=== PATIENT | male | born 1965 | race Caucasian/White ===

== ENCOUNTER 2019-11-23 08:48 | Inpatient (IN) | payer BC ==
[~2019-11-23 08:48] MED LIST: Acetaminophen 325 MG Tab PO SCH; Bisacodyl 5 MG Tab PO PRN; Cyclobenzaprine 10 MG Tab PO PRN; Famotidine 20 MG Tab PO SCH; Ketorolac 15 MG/ML SDV IVPUSH PRN; Lactated Ringers 1,000 ML IV SCH; Lidocaine 1%/Sod Bicarbonate in NS 8.4% 1 ML Syringe IDERM PRN; Magnesium Hydroxide 400 MG/5 ML Susp 30 ML Cup PO PRN; Morphine 2 MG/ML SYRINGE IVPUSH PRN; Naloxone 0.4 MG/ML SDV IVPUSH PRN; Ondansetron 4 MG/2 ML SDV IVPUSH PRN; Pregabalin 25 MG Cap PO SCH; Sennosides 8.6 MG Tab PO PRN; Sodium Chloride 0.9% 10 ML Syringe FLUSH PRN; ceFAZolin 2 GM in Premix Bag 1 BAG IV SCH; oxyCODONE ER 10 MG TAB.ER PO SCH
[2019-11-23] MEDS ORDERED: Vancomycin 1 GM SDV ONE ×2 (09:13→12:31)
[2019-11-23] MEDS ORDERED: Iodine/Sodium Iodide 2% Tincture 30 ML Bottle ONE ×2 (09:13→12:31)
[2019-11-23] MEDS ORDERED: Bupivacaine 0.25% 10 ML SDV ONE (09:13)
[2019-11-23] MEDS ORDERED: ceFAZolin 1 GM Vial ONE ×4 (09:13→12:31)
--- NOTE | 2019-11-23 09:15 | PCM.PREANE ---
Preanesthetic Assessment - Procedure Proposed Procedure: Right total shoulder arthroplasty - Anesthesia/Transfusion/Family Hx Anesthesia History: Prior Anesthesia Without Reaction Family History of Anesthesia Reaction: No Transfusion History: No Prior Transfusion(s) - Review of Systems General: No Symptoms Pulmonary: No Symptoms Cardiovascular: Dyspnea on Exertion Gastrointestinal: No Symptoms Neurological: No Symptoms Other: Reports: Easy Bruising, Neck Pain ("stifness") - Physical Assessment NPO Status Date: 11/22/19 NPO Status Time: 00:00 Height: 1.78 m Weight: 124.5 kg ASA Class: 3 Mental Status: Alert & Oriented x3 Airway Class: Mallampati = 1 Dentition: Reports: Normal Dentition Thyro-Mental Finger Breadths: 3 Mouth Opening Finger Breadths: 3 ROM/Head Extension: Full Lungs: Clear to Auscultation, Normal Respiratory Effort Cardiovascular: Regular Rate, Regular Rhythm - Lab Values: Laboratory Last Values COVID-19 PCR Not detected (NOT DETECT) 11/20/19 11:30 MRSA (PCR) Negative 11/08/19 15:54 - Imaging/EKG Impressions: EKG SR Rate 71 - Allergies Allergies/Adverse Reactions: Allergies Allergy/AdvReac Type Severity Reaction Status Date / Time No Known Allergies Allergy Verified 11/22/19 11:50 - Blood Blood Available: No Product(s) Available: None - Anesthesia Plan Pre-Op Medication Ordered: None - Acknowledgements Anesthesia Type Planned: General Anesthesia, Regional Block (interscanese block for post-op pain control) Pt an Appropriate Candidate for the Planned Anesthesia: Yes Alternatives and Risks of Anesthesia Discussed w Pt/Guardian: Yes Pt/Guardian Understands and Agrees with Anesthesia Plan: Yes PreAnesthesia Questionnaire HEENT History: Reports: Impaired Vision, Other (See Below) Other HEENT History: wears glasses Cardiovascular History: Reports: Hypertension Respiratory History: Reports: None Gastrointestinal History: Reports: Diverticulosis, GERD, Hemorrhoids, Hiatal Hernia Genitourinary History: Reports: None 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 Musculoskeletal History: Reports: Back Pain, Chronic, Neck Pain, Chronic, Other (See Below) Other Musculoskeletal History: shoulder pain Neurological History: Reports: Other (See Below) Other Neuro History: cervical ddd Psychiatric History: Reports: Anxiety Endocrine/Metabolic History: Reports: Diabetes, Type II, Obesity/BMI 30+ Hematologic History: Reports: None Immunologic History: Reports: None Oncologic (Cancer) History: Reports: None Dermatologic History: Reports: None - Past Surgical History Head Surgeries/Procedures: Reports: None HEENT Surgical History: Reports: None Cardiovascular Surgical History: Reports: None Respiratory Surgical History: Reports: None GI Surgical History: Reports: Colonoscopy Female Surgical History: Reports: None Male Surgical History: Reports: None Endocrine Surgical History: Reports: None Musculoskeletal Surgical History: Reports: None Oncologic Surgical History: Reports: None Dermatological Surgical History: Reports: None - SUBSTANCE USE Smoking Status *Q: Current Every Day Smoker (chews tobacco) Tobacco Use Within Last Twelve Months: Smokeless Tobacco Second Hand Smoke Exposure: No Days Per Week of Alcohol Use: 3 Number of Drinks Per Day: 3 Total Drinks Per Week: 9 Recreational Drug Use History: No - HOME MEDS Home Medications: Home Meds Omeprazole [Prilosec] 20 mg PO DAILY 01/21/14 [History] Aspirin [Adult Low Dose Aspirin EC] 81 mg PO DAILY 05/31/15 [History] Cholecalciferol (Vitamin D3) [Vitamin D3] 5,000 unit PO DAILY 11/22/19 [History] Losartan Potassium 100 mg PO DAILY 11/22/19 [History] Omeprazole Magnesium [Prilosec Otc] 20 mg PO DAILY 11/22/19 [History] SitaGLIPtin [Januvia] 100 mg PO DAILY 11/22/19 [History] Venlafaxine HCl [Venlafaxine ER] 150 mg PO DAILY 11/22/19 [History] hydroCHLOROthiazide [Hydrochlorothiazide] 12.5 mg PO DAILY 11/22/19 [History] - CURRENT (IN HOUSE) MEDS Current Meds: Current Medications Acetaminophen (Tylenol) 975 mg PO ONETIME DUONG Stop: 11/23/19 12:00 Last Admin: 11/23/19 09:04 Dose: 975 mg Documented by: Aspirin (Ecotrin) 325 mg PO DAILY DUONG Bisacodyl (Dulcolax) 5 mg PO DAILY PRN PRN Reason: Constipation Cyclobenzaprine HCl (Flexeril) 10 mg PO TID PRN PRN Reason: Spasms Docusate Sodium (Colace) 100 mg PO BID DUONG Famotidine (Pepcid) 20 mg PO Q12H DUONG Lactated Ringer's (Ringers, Lactated) 1,000 mls @ 125 mls/hr IV ASDIRECTED DUONG Stop: 11/23/19 23:00 Cefazolin Sodium/Dextrose 2 gm (/ Premix) 50 mls @ 100 mls/hr IV Q8H [facility] Stop: 11/24/19 01:29 Ketorolac Tromethamine (Toradol) 15 mg IVPUSH Q6H PRN PRN Reason: Pain Lidocaine/Sodium Bicarbonate (Buffered Lidocaine 1% In Ns 8.4%) 0.25 ml IDERM ONETIME PRN PRN Reason: Prior to IV Start Stop: 11/23/19 18:00 Magnesium Hydroxide (Milk Of Magnesia) 30 ml PO BID PRN PRN Reason: Constipation Morphine Sulfate (Morphine) 2 mg IVPUSH Q2H PRN PRN Reason: Breakthrough Pain Naloxone HCl (Narcan) 0.1 mg IVPUSH Q5M PRN PRN Reason: Oversedation Ondansetron HCl (Zofran) 4 mg IVPUSH Q6H PRN PRN Reason: Nausea/Vomiting Oxycodone HCl (Oxycontin) 10 mg PO ONETIME [facility] Stop: 11/23/19 12:00 Last Admin: 11/23/19 09:04 Dose: 10 mg Documented by: Oxycodone/Acetaminophen (Percocet 325-5 Mg) 1 - 2 tab PO Q4H PRN PRN Reason: Pain Pregabalin (Lyrica) 50 mg PO ONETIME [facility] Stop: 11/23/19 12:00 Last Admin: 11/23/19 09:04 Dose: 50 mg Documented by: Senna (Senna) 8.6 mg PO BID PRN PRN Reason: Constipation Sodium Chloride (Saline Flush) 10 ml FLUSH ASDIRECTED PRN PRN Reason: Keep Vein Open Stop: 11/23/19 18:00 Discontinued Medications Famotidine (Pepcid) 20 mg PO Q12H [facility] Cefazolin Sodium/Dextrose 2 gm (/ Premix) 50 mls @ 100 mls/hr IV Q8H [facility] Stop: 11/23/19 22:29 Ketorolac Tromethamine (Toradol) 15 mg IVPUSH Q6H PRN PRN Reason: Pain
[2019-11-23] MEDS ORDERED: Ropivacaine 0.5% 5 MG/ML 30 ML SDV ONE (09:21)
[2019-11-23] MEDS ORDERED: EPINEPHrine 1 MG/ML SDV ONE (09:21)
[2019-11-23] MEDS ORDERED: fentaNYL 100 MCG/2 ML SDV ONE ×2 (09:23→10:23)
[2019-11-23] MEDS ORDERED: Lidocaine 1% 2 ML ONE (09:23)
[2019-11-23] MEDS ORDERED: Midazolam 1 MG/ML 2 ML SDV ONE (09:23)
[2019-11-23] MEDS ORDERED: Rocuronium 50 MG/5 ML Vial ONE (10:03)
[2019-11-23] MEDS ORDERED: Ondansetron 4 MG/2 ML SDV ONE ×2 (10:03→11:38)
[2019-11-23] MEDS ORDERED: Propofol 200 MG/20 ML SDV ONE (10:03)
[2019-11-23] MEDS ORDERED: Lactated Ringers 1,000 ML ONE (10:38)
--- NOTE | 2019-11-23 10:44 | PCM.CONS ---
H&P History of Present Illness - General Date of Service: 11/23/19 Admit Problem/Dx: Admission Diagnosis/Problem Admission Diagnosis/Problem Osteoarthritis of shoulder Source of Information: Patient, Old Records, Provider, RN, RN Notes Reviewed History Limitations: Reports: No Limitations - History of Present Illness Initial Comments - Free Text/Narative: Iraj Brooks is a 54 yo male patient of Dr. Redd who is post-operative day 0 of right RTSA. Hospital medicine was consulted for post-operative medical care of the following listed medical conditions. At this time he is resting comfortably in bed. Pain is controlled. He denies any chest pain, shortness of breath, palpitations, nausea, or vomiting. He carries a history of: Anxiety, Type II DM, GERD, HTN, Low back pain, Obesity, ETOH use, Diverticulosis, Chronic neck pain 2/2 cervical degenerative disk disease, Hemorrhoids, Hiatal Hernia. He is a current daily chewing tobacco user. He is a full code. His primary care provider is Dr. Loja. - Related Data Allergies/Adverse Reactions: Allergies Allergy/AdvReac Type Severity Reaction Status Date / Time No Known Allergies Allergy Verified 11/23/19 13:55 Home Medications: Home Meds Aspirin [Adult Low Dose Aspirin EC] 81 mg PO DAILY 05/31/15 [History] Cholecalciferol (Vitamin D3) [Vitamin D3] 5,000 unit PO DAILY 11/22/19 [History] Losartan Potassium 100 mg PO DAILY 11/22/19 [History] Omeprazole Magnesium [Prilosec Otc] 20 mg PO DAILY 11/22/19 [History] SitaGLIPtin [Januvia] 100 mg PO DAILY 11/22/19 [History] Venlafaxine HCl [Venlafaxine ER] 150 mg PO DAILY 11/22/19 [History] hydroCHLOROthiazide [Hydrochlorothiazide] 12.5 mg PO DAILY 11/22/19 [History] Magnesium 11/23/19 [History] Multivitamin 1 tab PO DAILY 11/23/19 [History] Past Medical History HEENT History: Reports: Impaired Vision, Other (See Below) Other HEENT History: wears glasses Cardiovascular History: Reports: Hypertension Respiratory History: Reports: None Gastrointestinal History: Reports: Diverticulosis, GERD, Hemorrhoids, Hiatal Hernia Genitourinary History: Reports: None 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 Musculoskeletal History: Reports: Back Pain, Chronic, Neck Pain, Chronic, Other (See Below) Other Musculoskeletal History: shoulder pain Neurological History: Reports: Other (See Below) Other Neuro History: cervical ddd Psychiatric History: Reports: Anxiety Endocrine/Metabolic History: Reports: Diabetes, Type II, Obesity/BMI 30+ Hematologic History: Reports: None Immunologic History: Reports: None Oncologic (Cancer) History: Reports: None Dermatologic History: Reports: None - Past Surgical History Head Surgeries/Procedures: Reports: None HEENT Surgical History: Reports: None Cardiovascular Surgical History: Reports: None Respiratory Surgical History: Reports: None GI Surgical History: Reports: Colonoscopy Female Surgical History: Reports: None Male Surgical History: Reports: None Endocrine Surgical History: Reports: None Musculoskeletal Surgical History: Reports: None Oncologic Surgical History: Reports: None Dermatological Surgical History: Reports: None Social & Family History - Tobacco Use Smoking Status *Q: Current Every Day Smoker (chews tobacco) Years of Tobacco use: 35 Packs/Tins Daily: 0.5 Second Hand Smoke Exposure: No - Caffeine Use Caffeine Use: Reports: Soda - Alcohol Use Days Per Week of Alcohol Use: 3 Number of Drinks Per Day: 3 Total Drinks Per Week: 9 - Recreational Drug Use Recreational Drug Use: No H&P Review of Systems - Review of Systems: Review Of Systems: See Below General: Reports: No Symptoms. Denies: Fever, Chills HEENT: Reports: No Symptoms. Denies: Headaches, Sore Throat Pulmonary: Reports: Cough. Denies: Shortness of Breath, Wheezing, Pleuritic Chest Pain, Sputum Cardiovascular: Reports: No Symptoms. Denies: Chest Pain, Palpitations, Dyspnea on Exertion Gastrointestinal: Reports: No Symptoms. Denies: Abdominal Pain, Constipation, Diarrhea, Nausea, Vomiting Genitourinary: Reports: No Symptoms. Denies: Pain Musculoskeletal: Reports: Shoulder Pain Skin: Reports: No Symptoms. Denies: Cyanosis Psychiatric: Reports: No Symptoms. Denies: Confusion Neurological: Reports: Numbness, Tingling. Denies: Pre-Existing Deficit, Difficulty Walking, Weakness, Gait Disturbance Hematologic/Lymphatic: Reports: No Symptoms Immunologic: Reports: No Symptoms Exam - Exam Exam: See Below - Vital Signs Vital Signs: Last Vital Signs Temp 98.1 F 11/23/19 08:46 Pulse 83 11/23/19 08:46 Resp 19 11/23/19 09:52 BP 149/89 H 11/23/19 09:52 Pulse Ox 97 11/23/19 09:52 Weight: 274 lb 7.608 oz - Exam Quality Assessment: DVT Prophylaxis. No: Supplemental Oxygen, Urinary Catheter General: Alert, Oriented, Cooperative. No: Mild Distress HEENT: Conjunctiva Clear, EACs Clear, Hearing Intact, Mucosa Moist & [place], Posterior Pharynx Clear, PERRLA Neck: Supple, Trachea Midline Lungs: Clear to Auscultation, Normal Respiratory Effort Cardiovascular: Regular Rate, Regular Rhythm GI/Abdominal Exam: Normal Bowel Sounds, Soft, Non-Tender, No Distention (Male) Exam: Deferred Rectal (Males) Exam: Deferred Extremities: Normal Capillary Refill, Limited Range of Motion, Other (Bandage in place on right shoulder. Bandage is dry and intact. Cooling pack in place. ) Peripheral Pulses: 2+: Radial (L), Radial (R), Dorsalis Pedis (L), Dorsalis Pedis (R) Skin: Warm, Dry, Intact Neurological: Cranial Nerves Intact (Grossly ) Neuro Extensive - Mental Status: Alert, Oriented x3, Normal Mood/Affect - Patient Data Lab Results Last 24 hrs: Laboratory Results - last 24 hr 11/23/19 Range/Units 09:15 POC Glucose 103 (70-105) mg/dL Sepsis Event Note - Focused Exam Vital Signs: Vital Signs Temp Pulse Resp BP Pulse Ox 11/23/19 09:52 19 149/89 H 97 11/23/19 09:45 9 L 144/89 H 97 11/23/19 09:36 13 142/96 H 96 11/23/19 08:46 98.1 F 83 20 130/79 95 Date Exam was Performed: 11/23/19 Time Exam was Performed: 14:32 Consult PN Assessment/Plan POD#: 0 Procedures: Procedures ASSAY OF BLOOD/URIC ACID (11/07/19) ASSAY OF LACTIC ACID (11/07/19) ASSAY OF PREALBUMIN (11/07/19) ASSAY THYROID STIM HORMONE (09/01/19) BL SMEAR W/DIFF WBC COUNT (09/20/18) C-REACTIVE PROTEIN (11/07/19) COLONOSCOPY AND BIOPSY (06/03/15) COMPLETE CBC AUTOMATED (09/20/18) COMPLETE CBC W/AUTO DIFF WBC (11/07/19) COMPREHEN METABOLIC PANEL (11/07/19) EMERGENCY DEPT VISIT (01/21/14) GLYCOSYLATED HEMOGLOBIN TEST (11/07/19) LIPID PANEL (11/07/19) MRI JOINT UPR EXTREM W/O DYE (10/06/19) MRI LUMBAR SPINE W/O DYE (09/01/19) MRI NECK SPINE W/O DYE (10/20/16) PROTHROMBIN TIME (11/07/19) ROUTINE VENIPUNCTURE (11/07/19) THROMBOPLASTIN TIME PARTIAL (11/07/19) UR ALBUMIN SEMIQUANTITATIVE (11/07/19) URINALYSIS AUTO W/O SCOPE (11/07/19) URINALYSIS AUTO W/SCOPE (09/01/19) VITAMIN B-12 (11/07/19) X-RAY EXAM CHEST 2 VIEWS (11/07/19) X-RAY EXAM NECK SPINE 4/5VWS (05/26/19) X-RAY EXAM OF SHOULDER (05/26/19) X-RAY EXAM SACRUM TAILBONE (01/21/14) (1) S/p reverse total shoulder arthroplasty SNOMED Code(s): 381903874, 945837070 Code(s): Z96.619 - PRESENCE OF UNSPECIFIED ARTIFICIAL SHOULDER JOINT Priority: High Current Visit: Yes Qualifiers: Laterality: right Qualified Code(s): Z96.611 - Presence of right artificial shoulder joint (2) Osteoarthritis (arthritis due to wear and tear of joints) SNOMED Code(s): 238540127 Code(s): M19.90 - UNSPECIFIED OSTEOARTHRITIS, UNSPECIFIED SITE Priority: High Current Visit: Yes Qualifiers: Osteoarthritis location: shoulder Osteoarthritis type: primary Laterality: right Qualified Code(s): M19.011 - Primary osteoarthritis, right shoulder (3) Anxiety SNOMED Code(s): 29054487 Code(s): F41.9 - ANXIETY DISORDER, UNSPECIFIED Priority: Low Current Visit: No (4) Type II diabetes mellitus SNOMED Code(s): 34360593 Code(s): E11.9 - TYPE 2 DIABETES MELLITUS WITHOUT COMPLICATIONS Priority: Medium Current Visit: No Qualifiers: Diabetes mellitus usp insulin 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 Diabetes mellitus complication status: with other specified complication Qualified Code(s): E11.69 - Type 2 diabetes mellitus with other specified complication; Z79.4 - 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) use of insulin (5) GERD (gastroesophageal reflux disease) SNOMED Code(s): 472019535 Code(s): K21.9 - GASTRO-ESOPHAGEAL REFLUX DISEASE WITHOUT ESOPHAGITIS Priority: Medium Current Visit: No Qualifiers: Esophagitis presence: esophagitis presence not specified Qualified Code(s): K21.9 - Gastro-esophageal reflux disease without esophagitis (6) HTN (hypertension) SNOMED Code(s): 67650000 Code(s): I10 - ESSENTIAL (PRIMARY) HYPERTENSION Priority: Medium Current Visit: No Qualifiers: Hypertension type: unspecified Qualified Code(s): I10 - Essential (primary) hypertension (7) Chronic low back pain SNOMED Code(s): 444920457 Code(s): M54.5 - LOW BACK PAIN; G89.29 - OTHER CHRONIC PAIN Priority: Low Current Visit: No Qualifiers: Back pain laterality: unspecified Sciatica presence: unspecified whether sciatica present Qualified Code(s): M54.5 - Low back pain; G89.29 - Other chronic pain (8) Chronic neck pain SNOMED Code(s): 0750314601078 Code(s): M54.2 - CERVICALGIA; G89.29 - OTHER CHRONIC PAIN Priority: Low Current Visit: No (9) Obesity SNOMED Code(s): 368671402, 237627648 Code(s): E66.9 - OBESITY, UNSPECIFIED Priority: Low Current Visit: No Qualifiers: Obesity type: unspecified obesity type Obesity classification: adult class 2 (BMI 35 - 39.9) Body mass index: BMI 39.0-39.9 (10) Chronic alcohol use SNOMED Code(s): 683913 Code(s): Z72.89 - OTHER PROBLEMS RELATED TO LIFESTYLE Priority: Medium Current Visit: No (11) Hemorrhoids SNOMED Code(s): 62534890 Code(s): K64.9 - UNSPECIFIED HEMORRHOIDS Priority: Low Current Visit: No Qualifiers: Hemorrhoid type: unspecified Qualified Code(s): K64.9 - Unspecified hemorrhoids (12) Hiatal hernia SNOMED Code(s): 64040619 Code(s): K44.9 - DIAPHRAGMATIC HERNIA WITHOUT OBSTRUCTION OR GANGRENE Priority: Low Current Visit: No (13) Degenerative disc disease, cervical SNOMED Code(s): 45853302 Code(s): M50.30 - OTHER CERVICAL DISC DEGENERATION, UNSP CERVICAL REGION Priority: Low Current Visit: No (14) Chewing tobacco use SNOMED Code(s): 27927845 Code(s): Z72.0 - TOBACCO USE Priority: Medium Current Visit: Yes Problem List Initiated/Reviewed/Updated: Yes Plan: I/P: Acute: S/P right reverse total shoulder arthroplasty - post-operative day 0 -DVT prophylaxis and pain management per primary care team -PT/OT -IS/RT -Monitor oxygen saturation -Titrate oxygen as needed -Home medications reviewed -Vital signs stable -Monitor labs -Pre-operative Hgb was 15.0 -Pre-operative GFR was >60 -Pre-operative A1C was 6.1% Osteoarthritis of right shoulder -Pain management per primary care team Chronic: Anxiety Type II DM GERD HTN Low back pain Obesity ETOH use Diverticulosis Chronic neck pain 2/2 cervical degenerative disk disease Hemorrhoids Hiatal Hernia Plan: CM for discharge planning GI prophylaxis Home medications as indicated Other orders as listed above Routine AM labs He is a full code. His PCP is Dr. Loja Thank you for allowing us to participate in the care of this patient!! Requesting Provider: Dr. Redd Date Consult Requested: 11/23/19 Patient History Reviewed: Yes Admission H&P Reviewed: Yes Notified Requestor: Yes
[2019-11-23] MEDS ORDERED: ePHEDrine Sulfate/0.9% NaCl/Pf 25 MG/5 ML SYRINGE IV ONE (11:02)
--- NOTE | 2019-11-23 11:27 | PCM.SN.2 ---
- Free Text/Narrative Note: -Interscalene nerve block note Date: 11/23/2019 Start: 934 Time Out: 935 Stop: 951 Procedure: Right interscalene block under US guidance for postoperative pain control requested by Dr. Redd Patient chart reviewed, risk/benefits discussed with patient, consent obtained. Patient positioned supine, monitors/alarms on, oxygen placed via nasal cannula at 2 LPM. Right shoulder prepped with chloraprep x3. Sterile drapes placed with aseptic technique. Under US guidance, Right subclavian artery visualized along with the brachial plexus. Plexus followed cephalad up to C6 cricoid level, and area localized with 2mls of 1% lidocaine. 22gauge 2 inch stimiplex needle inserted under US and guided to brachial plexus C5-C6 trunks with 0.64mV with stimulation of biceps noted. Stimulation abolished at 0.3mVs. 1ml of Normal Saline injected with loss of stimulation. Incremental injection of 5mls with negative aspiration prior to each injection of 0.5% ropivacaine with 1:200,000 epinephrine. Total volume=30mls. Refer to nurses notes for vital signs and medication administration. Patient tolerated procedure well. No complications noted. Pedro Merlos CRNA
[2019-11-23] MEDS ORDERED: fentaNYL 100 MCG/2 ML SDV IVPUSH PRN (11:28)
[2019-11-23] MEDS ORDERED: HYDROmorphone 0.5 MG/0.5 ML Syringe IVPUSH PRN (11:28)
--- NOTE | 2019-11-23 12:34 | PCM.POSTAN ---
POST ANESTHESIA ASSESSMENT - MENTAL STATUS Mental Status: Alert, Oriented - VITAL SIGNS Vital Signs: Last Vital Signs Temp 97.4 F 11/23/19 12:22 Pulse 85 11/23/19 12:22 Resp 15 11/23/19 12:22 BP 123/82 11/23/19 12:22 Pulse Ox 96 11/23/19 12:22 - RESPIRATORY Respiratory Status: Respiratory Rate WNL, Airway Patent, O2 Saturation Stable - CARDIOVASCULAR CV Status: Pulse Rate WNL, Blood Pressure Stable - GASTROINTESTINAL GI Status: No Symptoms - PAIN Pain Score: 3 - POST OP HYDRATION Hydration Status: Adequate & Stable
[2019-11-23] MEDS: Acetaminophen/oxyCODONE 325-5 MG Tab PO PRN ×3 (12:35→23:39)
[2019-11-23] MEDS ORDERED: Ketorolac 15 MG/ML SDV IVPUSH PRN (13:00)
--- NOTE | 2019-11-23 13:13 | CR ---
Right shoulder: AP view of the right shoulder was obtained. Comparison: Prior fluoroscopic study performed earlier on same day (11:43 AM). Right shoulder prosthesis is seen. Components are aligned. Underlying bony structures are intact. Impression: 1. Satisfactory appearance of recently placed right shoulder prosthesis. Diagnostic code #2 This report was dictated in MDT
--- NOTE | 2019-11-23 13:24 | CR ---
Right shoulder: 3 fluoroscopic spot views were obtained of the right shoulder utilizing C-arm device. Study shows placement of a right shoulder prosthesis. Fluoroscopy time given as 3.9 seconds. Impression: 1. Procedural study as noted above. Diagnostic code #2 This report was dictated in MDT
[2019-11-23] MEDS ORDERED: Nicotine 14 MG/24 Hr Patch TRDERM SCH (16:00)
[2019-11-23] MEDS: ceFAZolin 1 GM in Premix Bag 1 BAG IV SCH (17:04)
[2019-11-23] MEDS: ceFAZolin 2 GM in Premix Bag 1 BAG IV SCH (17:05)
[2019-11-23] MEDS: Insulin Lispro 100 Units/ML 3 ML Vial SUBCUT SCH ×2 (17:50→22:41)
[2019-11-23] MEDS ORDERED: Docusate Sodium 100 MG Cap PO SCH (21:00)
[2019-11-23] MEDS ORDERED: Famotidine 20 MG Tab PO SCH (21:00)
[2019-11-24] MEDS: ceFAZolin 1 GM in Premix Bag 1 BAG IV SCH ×2 (01:12→08:41)
[2019-11-24] MEDS: ceFAZolin 2 GM in Premix Bag 1 BAG IV SCH ×2 (01:12→08:41)
[2019-11-24] MEDS: Acetaminophen/oxyCODONE 325-5 MG Tab PO PRN ×2 (05:21→09:14)
--- NOTE | 2019-11-24 07:16 | PCM.CONSN ---
- General Info Date of Service: 11/24/19 Admission Dx/Problem (Free Text): Admission Diagnosis/Problem Admission Diagnosis/Problem Osteoarthritis of shoulder Functional Status: Reports: Pain Controlled, Tolerating Diet, Ambulating, Urinating, Incentive Spirometry. Denies: New Symptoms - Review of Systems General: Reports: No Symptoms. Denies: Fever, Chills HEENT: Reports: No Symptoms. Denies: Headaches, Sore Throat Pulmonary: Reports: Cough (rare but improved ). Denies: Shortness of Breath, Pleuritic Chest Pain, Sputum, Wheezing Cardiovascular: Reports: No Symptoms. Denies: Chest Pain, Palpitations, Dyspnea on Exertion, Edema Gastrointestinal: Reports: No Symptoms. Denies: Abdominal Pain, Constipation, Diarrhea, Nausea, Vomiting Genitourinary: Reports: No Symptoms. Denies: Pain Musculoskeletal: Reports: Shoulder Pain Skin: Reports: No Symptoms. Denies: Cyanosis Neurological: Reports: No Symptoms. Denies: Confusion, Numbness, Tingling, Difficulty Walking, Weakness, Gait Disturbance Psychiatric: Reports: No Symptoms - Patient Data Vitals - Most Recent: Last Vital Signs Temp 98.4 F 11/24/19 04:21 Pulse 67 11/24/19 04:21 Resp 16 11/24/19 04:21 BP 138/75 11/24/19 04:21 Pulse Ox 94 L 11/24/19 04:21 Weight - Most Recent: 285 lb 3.2 oz I&O - Last 24 Hours: Intake & Output 11/23/19 11/24/19 11/24/19 22:59 06:59 14:59 Intake Total 280 3200 Output Total 2675 Balance 280 525 Lab Results Last 24 Hours: Laboratory Results - last 24 hr 11/23/19 11/23/19 11/23/19 Range/Units 09:15 16:49 21:26 WBC (4.23-9.07) K/mm3 RBC (4.63-6.08) M/mm3 Hgb (13.7-17.5) gm/dl Hct (40.1-51.0) % MCV (79.0-92.2) fl MCH (25.7-32.2) pg MCHC (32.2-35.5) g/dl RDW Std Deviation (35.1-43.9) fL Plt Count (163-337) K/mm3 MPV (9.4-12.3) fl POC Glucose 103 124 H 99 (70-105) mg/dL 11/24/19 11/24/19 Range/Units 05:13 06:07 WBC 6.45 (4.23-9.07) K/mm3 RBC 4.23 L (4.63-6.08) M/mm3 Hgb 12.4 L D (13.7-17.5) gm/dl Hct 38.8 L (40.1-51.0) % MCV 91.7 (79.0-92.2) fl MCH 29.3 (25.7-32.2) pg MCHC 32.0 L (32.2-35.5) g/dl RDW Std Deviation 49.0 H (35.1-43.9) fL Plt Count 193 (163-337) K/mm3 MPV 8.8 L (9.4-12.3) fl POC Glucose 113 H (70-105) mg/dL Med Orders - Current: Current Medications Aspirin (Ecotrin) 325 mg PO DAILY [facility] Bisacodyl (Dulcolax) 5 mg PO DAILY PRN PRN Reason: Constipation Calcium Carbonate/Glycine (Calcium Carbonate) 600 mg PO DAILY [facility] Cholecalciferol (Vitamin D3) 5,000 unit PO DAILY [facility] Cyclobenzaprine HCl (Flexeril) 10 mg PO TID PRN PRN Reason: Spasms Docusate Sodium (Colace) 100 mg PO BID [facility] Last Admin: 11/23/19 23:41 Dose: 100 mg Documented by: Cefazolin Sodium/Dextrose 2 gm (/ Premix) 50 mls @ 100 mls/hr IV Q8H [facility] Stop: 11/24/19 09:59 Last Admin: 11/24/19 01:12 Dose: 100 mls/hr Documented by: Cefazolin Sodium/Dextrose 1 gm (/ Premix) 50 mls @ 100 mls/hr IV Q8H [facility] Stop: 11/24/19 09:59 Last Admin: 11/24/19 01:12 Dose: 100 mls/hr Documented by: Insulin Human Lispro (Humalog) 0 unit SUBCUT QIDACANDBED [facility]; Protocol Last Admin: 11/23/19 22:41 Dose: Not Given Documented by: Ketorolac Tromethamine (Toradol) 15 mg IVPUSH Q6H PRN PRN Reason: Pain Magnesium Hydroxide (Milk Of Magnesia) 30 ml PO BID PRN PRN Reason: Constipation Miscellaneous Information (Remove Patch) 1 ea TRDERM DAILY@1600 [facility] Last Admin: 11/23/19 16:39 Dose: Not Given Documented by: Morphine Sulfate (Morphine) 2 mg IVPUSH Q2H PRN PRN Reason: Breakthrough Pain Multivitamins (Thera) 1 each PO DAILY [facility] Naloxone HCl (Narcan) 0.1 mg IVPUSH Q5M PRN PRN Reason: Oversedation Nicotine (Habitrol) 14 mg TRDERM DAILY@1600 [facility] Last Admin: 11/23/19 16:27 Dose: Not Given Documented by: Ondansetron HCl (Zofran) 4 mg IVPUSH Q6H PRN PRN Reason: Nausea/Vomiting Oxycodone/Acetaminophen (Percocet 325-5 Mg) 1 - 2 tab PO Q4H PRN PRN Reason: Pain Last Admin: 11/24/19 05:21 Dose: 2 tab Documented by: Pantoprazole Sodium (Protonix) 40 mg PO DAILY [facility] Senna (Senna) 8.6 mg PO BID PRN PRN Reason: Constipation Venlafaxine HCl (Effexor Xr) 150 mg PO DAILY [facility] Discontinued Medications Acetaminophen (Tylenol) 975 mg PO ONETIME [facility] Stop: 11/23/19 12:00 Last Admin: 11/23/19 09:04 Dose: 975 mg Documented by: Bupivacaine HCl (Sensorcaine-Mpf 0.25%) Confirm Administered Dose 30 ml .ROUTE .STK-MED ONE Stop: 11/23/19 09:14 Cefazolin Sodium (Ancef) Confirm Administered Dose 0 gm .ROUTE .STK-MED ONE Stop: 11/23/19 09:23 Cefazolin Sodium (Ancef) Confirm Administered Dose 1 gm .ROUTE .STK-MED ONE Stop: 11/23/19 10:06 Cefazolin Sodium (Ancef) Confirm Administered Dose 2 gm .ROUTE .STK-MED ONE Stop: 11/23/19 12:32 Cefazolin Sodium (Ancef) Confirm Administered Dose 2 gm .ROUTE .STK-MED ONE Stop: 11/23/19 09:14 Last Admin: 11/23/19 11:46 Dose: 2 gm Documented by: Ephedrine Sulfate (Ephedrine 25 Mg/5 Ml Syringe) Confirm Administered Dose 25 mg IV .STK-MED ONE Stop: 11/23/19 11:03 Epinephrine HCl (Adrenalin) Confirm Administered Dose 1 mg .ROUTE .STK-MED ONE Stop: 11/23/19 09:22 Famotidine (Pepcid) 20 mg PO Q12H [facility] Last Admin: 11/23/19 15:04 Dose: Not Given Documented by: Famotidine (Pepcid) 20 mg PO Q12H [facility] Fentanyl (Sublimaze) Confirm Administered Dose 100 mcg .ROUTE .STK-MED ONE Stop: 11/23/19 09:24 Fentanyl (Sublimaze) Confirm Administered Dose 100 mcg .ROUTE .STK-MED ONE Stop: 11/23/19 10:24 Fentanyl (Sublimaze) 100 mcg IVPUSH Q5M PRN PRN Reason: Pain Stop: 11/23/19 18:00 Last Admin: 11/23/19 13:13 Dose: 50 mcg Documented by: Hydromorphone HCl (Dilaudid) 0.5 mg IVPUSH Q10M PRN PRN Reason: Pain (severe 7-10) Stop: 11/23/19 18:00 Lactated Ringer's (Ringers, Lactated) 1,000 mls @ 125 mls/hr IV ASDIRECTED [facility] Stop: 11/23/19 23:00 Last Admin: 11/23/19 09:15 Dose: 125 mls/hr Documented by: Cefazolin Sodium/Dextrose 2 gm (/ Premix) 50 mls @ 100 mls/hr IV Q8H [facility] Stop: 11/23/19 22:29 Last Admin: 11/23/19 15:04 Dose: Not Given Documented by: Lidocaine HCl (Xylocaine-Mpf 1%) Confirm Administered Dose 2 mls @ as directed .ROUTE .STK-MED ONE Stop: 11/23/19 09:24 Lactated Ringer's (Ringers, Lactated) Confirm Administered Dose 1,000 mls @ as directed .ROUTE .STK-MED ONE Stop: 11/23/19 10:39 Iodine (Iodine 2% Mild Tincture) Confirm Administered Dose 0 ml .ROUTE .STK-MED ONE Stop: 11/23/19 12:32 Iodine (Iodine 2% Mild Tincture) Confirm Administered Dose 30 ml .ROUTE .STK-MED ONE Stop: 11/23/19 09:14 Last Admin: 11/23/19 11:45 Dose: 18 ml Documented by: Ketorolac Tromethamine (Toradol) 15 mg IVPUSH Q6H PRN PRN Reason: Pain Lidocaine/Sodium Bicarbonate (Buffered Lidocaine 1% In Ns 8.4%) 0.25 ml IDERM ONETIME PRN PRN Reason: Prior to IV Start Stop: 11/23/19 18:00 Last Admin: 11/23/19 09:15 Dose: 0.25 ml Documented by: Midazolam HCl (Versed 1 Mg/Ml) Confirm Administered Dose 2 mg .ROUTE .STK-MED ONE Stop: 11/23/19 09:24 Ondansetron HCl (Zofran) Confirm Administered Dose 4 mg .ROUTE .STK-MED ONE Stop: 11/23/19 10:04 Ondansetron HCl (Zofran) Confirm Administered Dose 4 mg .ROUTE .STK-MED ONE Stop: 11/23/19 11:39 Oxycodone HCl (Oxycontin) 10 mg PO ONETIME [facility] Stop: 11/23/19 12:00 Last Admin: 11/23/19 09:04 Dose: 10 mg Documented by: Pregabalin (Lyrica) 50 mg PO ONETIME [facility] Stop: 11/23/19 12:00 Last Admin: 11/23/19 09:04 Dose: 50 mg Documented by: Propofol (Diprivan 20 Ml) Confirm Administered Dose 200 mg .ROUTE .STK-MED ONE Stop: 11/23/19 10:04 Rocuronium [place] (Zemuron) Confirm Administered Dose 50 mg .ROUTE .STK-MED ONE Stop: 11/23/19 10:04 Ropivacaine (Naropin 0.5%) Confirm Administered Dose 30 ml .ROUTE .STK-MED ONE Stop: 11/23/19 09:22 Sodium Chloride (Saline Flush) 10 ml FLUSH ASDIRECTED PRN PRN Reason: Keep Vein Open Stop: 11/23/19 18:00 Tranexamic Acid (Cyklokapron) Confirm Administered Dose 0 mg .ROUTE .STK-MED ONE Stop: 11/23/19 12:32 Tranexamic Acid (Cyklokapron) Confirm Administered Dose 1,000 mg .ROUTE .STK-MED ONE Stop: 11/23/19 09:14 Last Admin: 11/23/19 11:53 Dose: 1,000 mg Documented by: Vancomycin HCl (Vancomycin) Confirm Administered Dose 0 gm .ROUTE .STK-MED ONE Stop: 11/23/19 12:32 Vancomycin HCl (Vancomycin) Confirm Administered Dose 1 gm .ROUTE .STK-MED ONE Stop: 11/23/19 09:14 Last Admin: 11/23/19 11:53 Dose: 1 gm Documented by: - Exam Quality Assessment: DVT Prophylaxis. No: Supplemental Oxygen, Urine Catheter General: Alert, Oriented, Cooperative, No Acute Distress HEENT: Pupils Equal, Pupils Reactive, Mucous Membr. Moist/[place] Neck: Supple, Trachea Midline Lungs: Clear to Auscultation, Normal Respiratory Effort Cardiovascular: Regular Rate, Regular Rhythm GI/Abdominal Exam: Normal Bowel Sounds, Soft, Non-Tender, No Distention (Male) Exam: Deferred Back Exam: Normal Inspection, Full Range of Motion Extremities: Normal Capillary Refill, Arm Pain (Right shoulder), Limited Range of Motion, Other (Bandage in place on right shoulder. Cooling pack in place. ) Peripheral Pulses: 2+: Radial (L), Radial (R), Dorsalis Pedis (L), Dorsalis Pedis (R) Skin: Warm, Dry, Intact Wound/Incisions: Dressing Dry and Intact Neurological: No New Focal Deficit Psy/Mental Status: Alert, Normal Affect, Normal Mood Sepsis Event Note - Evaluation Sepsis Screening Result: No Definite Risk - Focused Exam Vital Signs: Vital Signs Temp Pulse Resp BP Pulse Ox 11/24/19 04:21 98.4 F 67 16 138/75 94 L 11/23/19 23:05 98.8 F 82 14 112/62 96 11/23/19 19:36 98.1 F 82 12 127/62 95 Date Exam was Performed: 11/24/19 Time Exam was Performed: 08:55 Consult PN Assessment/Plan POD#: 1 Procedures: Procedures ASSAY OF BLOOD/URIC ACID (11/07/19) ASSAY OF LACTIC ACID (11/07/19) ASSAY OF PREALBUMIN (11/07/19) ASSAY THYROID STIM HORMONE (09/01/19) BL SMEAR W/DIFF WBC COUNT (09/20/18) C-REACTIVE PROTEIN (11/07/19) COLONOSCOPY AND BIOPSY (06/03/15) COMPLETE CBC AUTOMATED (09/20/18) COMPLETE CBC W/AUTO DIFF WBC (11/07/19) COMPREHEN METABOLIC PANEL (11/07/19) EMERGENCY DEPT VISIT (01/21/14) GLYCOSYLATED HEMOGLOBIN TEST (11/07/19) LIPID PANEL (11/07/19) MRI JOINT UPR EXTREM W/O DYE (10/06/19) MRI LUMBAR SPINE W/O DYE (09/01/19) MRI NECK SPINE W/O DYE (10/20/16) PROTHROMBIN TIME (11/07/19) ROUTINE VENIPUNCTURE (11/07/19) THROMBOPLASTIN TIME PARTIAL (11/07/19) UR ALBUMIN SEMIQUANTITATIVE (11/07/19) URINALYSIS AUTO W/O SCOPE (11/07/19) URINALYSIS AUTO W/SCOPE (09/01/19) VITAMIN B-12 (11/07/19) X-RAY EXAM CHEST 2 VIEWS (11/07/19) X-RAY EXAM NECK SPINE 4/5VWS (05/26/19) X-RAY EXAM OF SHOULDER (05/26/19) X-RAY EXAM SACRUM TAILBONE (01/21/14) (1) S/p reverse total shoulder arthroplasty SNOMED Code(s): 473101576, 584940099 Code(s): Z96.619 - PRESENCE OF UNSPECIFIED ARTIFICIAL SHOULDER JOINT Priority: High Current Visit: Yes Qualifiers: Laterality: right Qualified Code(s): Z96.611 - Presence of right artificial shoulder joint (2) Osteoarthritis (arthritis due to wear and tear of joints) SNOMED Code(s): 098328634 Code(s): M19.90 - UNSPECIFIED OSTEOARTHRITIS, UNSPECIFIED SITE Priority: High Current Visit: Yes Qualifiers: Osteoarthritis location: shoulder Osteoarthritis type: primary Laterality: right Qualified Code(s): M19.011 - Primary osteoarthritis, right shoulder (3) Anxiety SNOMED Code(s): 41659402 Code(s): F41.9 - ANXIETY DISORDER, UNSPECIFIED Priority: Low Current Visit: No (4) Type II diabetes mellitus SNOMED Code(s): 15078987 Code(s): E11.9 - TYPE 2 DIABETES MELLITUS WITHOUT COMPLICATIONS Priority: Medium Current Visit: No Qualifiers: Diabetes mellitus care home insulin use: with meterman use Diabetes mellitus complication status: with other specified complication Qualified Code(s): E11.69 - Type 2 diabetes mellitus with other specified complication; Z79.4 - terminal carman (current) use of insulin (5) GERD (gastroesophageal reflux disease) SNOMED Code(s): 885519806 Code(s): K21.9 - GASTRO-ESOPHAGEAL REFLUX DISEASE WITHOUT ESOPHAGITIS Priority: Medium Current Visit: No Qualifiers: Esophagitis presence: esophagitis presence not specified Qualified Code(s): K21.9 - Gastro-esophageal reflux disease without esophagitis (6) HTN (hypertension) SNOMED Code(s): 08649638 Code(s): I10 - ESSENTIAL (PRIMARY) HYPERTENSION Priority: Medium Current Visit: No Qualifiers: Hypertension type: unspecified Qualified Code(s): I10 - Essential (primary) hypertension (7) Chronic low back pain SNOMED Code(s): 581077144 Code(s): M54.5 - LOW BACK PAIN; G89.29 - OTHER CHRONIC PAIN Priority: Low Current Visit: No Qualifiers: Back pain laterality: unspecified Sciatica presence: unspecified whether sciatica present Qualified Code(s): M54.5 - Low back pain; G89.29 - Other chronic pain (8) Chronic neck pain SNOMED Code(s): 3548920306350 Code(s): M54.2 - CERVICALGIA; G89.29 - OTHER CHRONIC PAIN Priority: Low Current Visit: No (9) Obesity SNOMED Code(s): 297228865, 245393861 Code(s): E66.9 - OBESITY, UNSPECIFIED Priority: Low Current Visit: No Qualifiers: Obesity type: unspecified obesity type Obesity classification: adult class 2 (BMI 35 - 39.9) Body mass index: BMI 39.0-39.9 (10) Chronic alcohol use SNOMED Code(s): 775942 Code(s): Z72.89 - OTHER PROBLEMS RELATED TO LIFESTYLE Priority: Medium Current Visit: No (11) Hemorrhoids SNOMED Code(s): 74202387 Code(s): K64.9 - UNSPECIFIED HEMORRHOIDS Priority: Low Current Visit: No Qualifiers: Hemorrhoid type: unspecified Qualified Code(s): K64.9 - Unspecified hemorrhoids (12) Hiatal hernia SNOMED Code(s): 98188137 Code(s): K44.9 - DIAPHRAGMATIC HERNIA WITHOUT OBSTRUCTION OR GANGRENE Priority: Low Current Visit: No (13) Degenerative disc disease, cervical SNOMED Code(s): 86484649 Code(s): M50.30 - OTHER CERVICAL DISC DEGENERATION, UNSP CERVICAL REGION Pr iority: Low Current Visit: No (14) Chewing tobacco use SNOMED Code(s): 68100087 Code(s): Z72.0 - TOBACCO USE Priority: Medium Current Visit: Yes Problem List Initiated/Reviewed/Updated: Yes My Orders Last 24 Hours: My Active Orders 11/23/19 12:25 Accu Check [Blood Glucose Check, Bedside] [RC] QIDACANDBED 11/23/19 16:00 Nicotine [Habitrol] 14 mg TRDERM DAILY@1600 Remove Patch 1 ea TRDERM DAILY@1600 11/23/19 17:00 Insulin Lispro [HumaLOG] See Protocol SUBCUT QIDACANDBED 11/24/19 09:00 Cholecalciferol (Vitamin D3) [Vitamin D3] 5,000 unit PO DAILY Multivitamins,Therapeutic [Thera] 1 each PO DAILY Pantoprazole [ProTONIX] 40 mg PO DAILY Venlafaxine [Effexor XR] 150 mg PO DAILY Plan: I/P: Acute: S/P right reverse total shoulder arthroplasty - post-operative day 1 -DVT prophylaxis and pain management per primary care team -PT/OT -IS/RT -Monitor oxygen saturation -Titrate oxygen as needed -Home medications reviewed -Vital signs stable -Monitor labs -Pre-operative Hgb was 15.0; Now 12.4 -Pre-operative GFR was >60; Now >60 -Pre-operative A1C was 6.1% Osteoarthritis of right shoulder -Pain management per primary care team Chronic: Anxiety Type II DM GERD HTN Low back pain Obesity ETOH use Diverticulosis Chronic neck pain 2/2 cervical degenerative disk disease Hemorrhoids Hiatal Hernia Plan: CM for discharge planning GI prophylaxis Home medications as indicated Other orders as listed above Routine AM labs He is a full code. His PCP is Dr. Loja From a hospitalist standpoint Iraj is doing well. He has been up ambulating and working with therapies. He is off of oxygen and has urinated. His pain is controlled. His labs and vital signs remain stable. He is cleared for discharge pending primary team and PT/OT agreement. Thank you for allowing us to participate in the care of this patient!!
[2019-11-24] MEDS: Insulin Lispro 100 Units/ML 3 ML Vial SUBCUT SCH (07:35)
[2019-11-24 08:26] VITALS: BP 117/78; PULSE 72
[2019-11-24] MEDS ORDERED: Docusate Sodium 100 MG Cap PO SCH (09:00)
[2019-11-24] MEDS ORDERED: Aspirin 325 MG Tab.EC PO SCH ×2 (09:00)
[2019-11-24] MEDS ORDERED: Venlafaxine 75 MG Cap.ER PO SCH (09:00)
[2019-11-24] MEDS ORDERED: Multivitamins,Therapeutic Tab PO SCH (09:00)
[2019-11-24] MEDS ORDERED: Pantoprazole 40 MG Tab.CR PO SCH (09:00)
[2019-11-24] MEDS ORDERED: Calcium Carbonate 600 MG Tab PO SCH (09:00)
[2019-11-24] MEDS ORDERED: Cholecalciferol (Vitamin D3) 5,000 UNIT Tab PO SCH (09:00)
--- NOTE | 2019-11-24 09:00 | PCM48HPAN ---
Post Anesthesia Note - EVALUATION WITHIN 48HRS OF ANESTHETIC Vital Signs in Normal Range: Yes Patient Participated in Evaluation: Yes Respiratory Function Stable: Yes Airway Patent: Yes Cardiovascular Function Stable: Yes Hydration Status Stable: Yes Pain Control Satisfactory: Yes Nausea and Vomiting Control Satisfactory: Yes Mental Status Recovered: Yes Vital Signs: Last Vital Signs Temp 36.8 C 11/24/19 07:39 Pulse 72 11/24/19 07:39 Resp 20 11/24/19 07:39 BP 117/78 11/24/19 07:39 Pulse Ox 97 11/24/19 07:39
--- NOTE | 2019-11-24 16:35 | PCM.DCSUM1 ---
Discharge Summary - Hospital Course Brief History: Iraj is a 54 yo male who underwent right reverse TSA with Dr. Redd on 11-23-2019. The procedure was completed under general anesthesia with regional block. The pt tolerated the procedure well and was admitted to the Medical-Surgical Unit. Medical management was provided by the Hospitalist service. The pt's Hospital course was uneventful. The pt's Hgb on POD#1 was 12.4. On POD#1, 325mg ASA daily was initiated for VTE prophylaxis. SCDs and TEDs were also ordered. A Mepilex dressing was placed at the incision site at the time of surgery and remained clean and dry. The pt participated in P.T. and O.T. and progressed well. On POD#1, the pt was deemed appropriate to discharge to home with his . - Discharge Data Discharge Date: 11/24/19 Discharge Disposition: Home, Self-Care 01 Condition: Good - Referral to Home Health Primary Care Physician: Caden Turner MD - Patient Summary/Data Consults: Consultations 11/23/19 05:57 OT Evaluation and Treatment [CONS] Routine PT Evaluation and Treatment [CONS] Routine 11/23/19 05:58 Consult to Physician [CONS] Routine - Patient Instructions Diet: Usual Diet as Tolerated Activity: Apply Ice, As Tolerated, Elevate Extremity Activity, Other: No forceful use of the surgical limb. Driving: Do Not Drive Showering/Bathing: May Shower Wound/Incision Care: Keep Operative Site/Wound Site Clean and Dry, Do NOT Change Dressing Notify Provider of: Fever, Increased Pain, Swelling and Redness, Drainage, Nausea and/or Vomiting Other/Special Instructions: Please get up and moving around EVERY HOUR while awake. This helps to prevent blood clots. Please have help with mobility as needed. Take a short walk in your home every hour while awake. Please take 325mg aspirin daily. The aspirin is being used for blood clot prevention and not for pain management so please do not miss a dose of the medication. You could use a medication like Pepcid or Tagamet and a medication like Prilosec or Nexium to protect your stomach while you are using the aspirin. At home, please complete the exercises that you learned during the Hospital stay. Schedule for physical or occupational therapy. Use the therapy order and protocol included in your discharge packet. CALL the therapy provider of your choice TO SCHEDULE an appointment. Use the immobilizer as directed. Use the pain medication as needed. The medication may cause drowsiness and constipation. Contact your primary care provider for instructions if you are constipated. You may use a stool softener like docusate sodium or Colace 100mg twice daily and/or a laxative like Miralax daily for constipation. Increase your water and fiber intake while you are using the pain medication. Discontinue use of the pain medication as soon as able. Please do not use other medications that may cause drowsiness (other pain medications, anxiety pills, cold medications, sleeping pills, etc) while using the prescription pain medication. Do not use alcohol while using the pain medication. You may use acetaminophen or Tylenol for pain management, however, please ensure you are not using over 4000 mg or 4 grams of acetaminophen per day from all sources. Your pain medication has 325mg of acetaminophen per tablet. Wear the NOHELIA hose during the day and you may remove these at night. Elevate the limb to decrease swelling. Place ice to the area often. Place a towel between your skin and the blue pad. Use the incentive spirometer often. Take deep breaths throughout the day. Please keep the dressing in place until follow-up. Notify the Clinic if the dressing becomes saturated. Increase your protein intake while you are healing. Please closely monitor your blood sugars and notify your primary care provider with abnormal values. Elevated blood sugars increases the risk of infection. Call the Clinic with questions or concerns - [phone] and leave a message for the nurse. - Discharge Plan *PRESCRIPTION DRUG MONITORING PROGRAM REVIEWED*: No *COPY OF PRESCRIPTION DRUG MONITORING REPORT IN PATIENT WILMAN: No Prescriptions/Med Rec: Aspirin [Ecotrin EC] 325 mg PO DAILY #40 tab.ec Cyclobenzaprine [Flexeril] 10 mg PO BID PRN #20 tablet PRN Reason: Spasms Acetaminophen/oxyCODONE [Percocet 325-5 MG] 1 - 2 tab PO Q4H PRN #60 tablet PRN Reason: Pain Home Medications: Home Meds Cholecalciferol (Vitamin D3) [Vitamin D3] 5,000 unit PO DAILY 11/22/19 [History] Losartan Potassium 100 mg PO DAILY 11/22/19 [History] Omeprazole Magnesium [Prilosec Otc] 20 mg PO DAILY 11/22/19 [History] SitaGLIPtin [Januvia] 100 mg PO DAILY 11/22/19 [History] Venlafaxine HCl [Venlafaxine ER] 150 mg PO DAILY 11/22/19 [History] hydroCHLOROthiazide [Hydrochlorothiazide] 12.5 mg PO DAILY 11/22/19 [History] Calcium Carbonate [Calcium] 650 mg PO DAILY 11/23/19 [History] Magnesium 525 mg PO DAILY 11/23/19 [History] Multivitamin 1 tab PO DAILY 11/23/19 [History] Acetaminophen/oxyCODONE [Percocet 325-5 MG] 1 - 2 tab PO Q4H PRN #60 tablet 11/24/19 [Rx] Aspirin [Ecotrin EC] 325 mg PO DAILY #40 tab.ec 11/24/19 [Rx] Cyclobenzaprine [Flexeril] 10 mg PO BID PRN #20 tablet 11/24/19 [Rx] Docusate Sodium [Colace] 100 mg PO BID cap 11/24/19 [Rx] Magnesium Hydroxide [Milk of Magnesia] 30 ml PO BID PRN cup 11/24/19 [Rx] Nicotine [Habitrol] 14 mg TRDERM DAILY@1600 patch 11/24/19 [Rx] Remove Patch 1 ea TRDERM DAILY@1600 each 11/24/19 [Rx] Sennosides [Senna] 8.6 mg PO BID PRN tablet 11/24/19 [Rx] Patient Handouts: Smokeless Tobacco Information, Adult Referrals: Lilly Butts PA-C [Physician Upholstery Repairer] - (please follow up with Lilly Butts on 12/01/2019 at 1115 12/19/2019 at 1130 01/05/2020 at 1145) - Discharge Summary/Plan Comment DC Time >30 min.: No - Patient Data Vitals - Most Recent: Last Vital Signs Temp 98.2 F 11/24/19 07:39 Pulse 72 11/24/19 07:39 Resp 20 11/24/19 07:39 BP 117/78 11/24/19 07:39 Pulse Ox 97 11/24/19 07:39 Weight - Most Recent: 285 lb 3.2 oz I&O - Last 24 hours: Intake & Output 11/24/19 11/24/19 11/24/19 06:59 14:59 22:59 Intake Total 3200 500 Output Total 2675 500 Balance 525 0 Lab Results - Last 24 hrs: Laboratory Results - last 24 hr 11/23/19 11/23/19 11/24/19 Range/Units 16:49 21:26 05:13 WBC 6.45 (4.23-9.07) K/mm3 RBC 4.23 L (4.63-6.08) M/mm3 Hgb 12.4 L D (13.7-17.5) gm/dl Hct 38.8 L (40.1-51.0) % MCV 91.7 (79.0-92.2) fl MCH 29.3 (25.7-32.2) pg MCHC 32.0 L (32.2-35.5) g/dl RDW Std Deviation 49.0 H (35.1-43.9) fL Plt Count 193 (163-337) K/mm3 MPV 8.8 L (9.4-12.3) fl Sodium (136-145) mEq/L Potassium (3.5-5.1) mEq/L Chloride (98-107) mEq/L Carbon Dioxide (21-32) mEq/L Anion Gap (5-15) BUN (7-18) mg/dL Creatinine (0.7-1.3) mg/dL Est Cr Clr Drug Dosing mL/min Estimated GFR (MDRD) (>60) mL/min BUN/Creatinine Ratio (14-18) Glucose (74-106) mg/dL POC Glucose 124 H 99 (70-105) mg/dL Calcium (8.5-10.1) mg/dL Total Bilirubin (0.2-1.0) mg/dL AST (15-37) U/L ALT (16-63) U/L Alkaline Phosphatase (46-116) U/L Total Protein (6.4-8.2) g/dl Albumin (3.4-5.0) g/dl Globulin gm/dL Albumin/Globulin Ratio (1-2) 11/24/19 11/24/19 Range/Units 05:13 06:07 WBC (4.23-9.07) K/mm3 RBC (4.63-6.08) M/mm3 Hgb (13.7-17.5) gm/dl Hct (40.1-51.0) % MCV (79.0-92.2) fl MCH (25.7-32.2) pg MCHC (32.2-35.5) g/dl RDW Std Deviation (35.1-43.9) fL Plt Count (163-337) K/mm3 MPV (9.4-12.3) fl Sodium 142 (136-145) mEq/L Potassium 4.4 (3.5-5.1) mEq/L Chloride 105 (98-107) mEq/L Carbon Dioxide 30 (21-32) mEq/L Anion Gap 11.4 (5-15) BUN 12 (7-18) mg/dL Creatinine 1.1 (0.7-1.3) mg/dL Est Cr Clr Drug Dosing 79.27 mL/min Estimated GFR (MDRD) > 60 (>60) mL/min BUN/Creatinine Ratio 10.9 L (14-18) Glucose 120 H (74-106) mg/dL POC Glucose 113 H (70-105) mg/dL Calcium 8.4 L (8.5-10.1) mg/dL Total Bilirubin 0.5 (0.2-1.0) mg/dL AST 26 (15-37) U/L ALT 33 (16-63) U/L Alkaline Phosphatase 69 (46-116) U/L Total Protein 6.5 (6.4-8.2) g/dl Albumin 2.9 L (3.4-5.0) g/dl Globulin 3.6 gm/dL Albumin/Globulin Ratio 0.8 L (1-2) Med Orders - Current: Current Medications Discontinued Medications Acetaminophen (Tylenol) 975 mg PO ONETIME [facility] Stop: 11/23/19 12:00 Last Admin: 11/23/19 09:04 Dose: 975 mg Documented by: Aspirin (Ecotrin) 325 mg PO DAILY [facility] Aspirin (Ecotrin) 325 mg PO DAILY [facility] Last Admin: 11/24/19 09:13 Dose: 325 mg Documented by: Bisacodyl (Dulcolax) 5 mg PO DAILY PRN PRN Reason: Constipation Bupivacaine HCl (Sensorcaine-Mpf 0.25%) Confirm Administered Dose 30 ml .ROUTE .STK-MED ONE Stop: 11/23/19 09:14 Calcium Carbonate/Glycine (Calcium Carbonate) 600 mg PO DAILY [facility] Last Admin: 11/24/19 08:39 Dose: 600 mg Documented by: Cefazolin Sodium (Ancef) Confirm Administered Dose 0 gm .ROUTE .STK-MED ONE Stop: 11/23/19 09:23 Cefazolin Sodium (Ancef) Confirm Administered Dose 1 gm .ROUTE .STK-MED ONE Stop: 11/23/19 10:06 Cefazolin Sodium (Ancef) Confirm Administered Dose 2 gm .ROUTE .STK-MED ONE Stop: 11/23/19 12:32 Cefazolin Sodium (Ancef) Confirm Administered Dose 2 gm .ROUTE .STK-MED ONE Stop: 11/23/19 09:14 Last Admin: 11/23/19 11:46 Dose: 2 gm Documented by: Cholecalciferol (Vitamin D3) 5,000 unit PO DAILY [facility] Last Admin: 11/24/19 08:39 Dose: 5,000 unit Documented by: Cyclobenzaprine HCl (Flexeril) 10 mg PO TID PRN PRN Reason: Spasms Docusate Sodium (Colace) 100 mg PO BID [facility] Last Admin: 11/23/19 23:41 Dose: 100 mg Documented by: Docusate Sodium (Colace) 100 mg PO BID [facility] Last Admin: 11/24/19 09:13 Dose: 100 mg Documented by: Ephedrine Sulfate (Ephedrine 25 Mg/5 Ml Syringe) Confirm Administered Dose 25 mg IV .STK-MED ONE Stop: 11/23/19 11:03 Epinephrine HCl (Adrenalin) Confirm Administered Dose 1 mg .ROUTE .STK-MED ONE Stop: 11/23/19 09:22 Famotidine (Pepcid) 20 mg PO Q12H [facility] Last Admin: 11/23/19 15:04 Dose: Not Given Documented by: Famotidine (Pepcid) 20 mg PO Q12H [facility] Fentanyl (Sublimaze) Confirm Administered Dose 100 mcg .ROUTE .STK-MED ONE Stop: 11/23/19 09:24 Fentanyl (Sublimaze) Confirm Administered Dose 100 mcg .ROUTE .STK-MED ONE Stop: 11/23/19 10:24 Fentanyl (Sublimaze) 100 mcg IVPUSH Q5M PRN PRN Reason: Pain Stop: 11/23/19 18:00 Last Admin: 11/23/19 13:13 Dose: 50 mcg Documented by: Hydromorphone HCl (Dilaudid) 0.5 mg IVPUSH Q10M PRN PRN Reason: Pain (severe 7-10) Stop: 11/23/19 18:00 Lactated Ringer's (Ringers, Lactated) 1,000 mls @ 125 mls/hr IV ASDIRECTED [facility] Stop: 11/23/19 23:00 Last Admin: 11/23/19 09:15 Dose: 125 mls/hr Documented by: Cefazolin Sodium/Dextrose 2 gm (/ Premix) 50 mls @ 100 mls/hr IV Q8H [facility] Stop: 11/23/19 22:29 Last Admin: 11/23/19 15:04 Dose: Not Given Documented by: Cefazolin Sodium/Dextrose 2 gm (/ Premix) 50 mls @ 100 mls/hr IV Q8H [facility] Stop: 11/24/19 09:59 Last Admin: 11/24/19 08:41 Dose: 100 mls/hr Documented by: Lidocaine HCl (Xylocaine-Mpf 1%) Confirm Administered Dose 2 mls @ as directed .ROUTE .STK-MED ONE Stop: 11/23/19 09:24 Lactated Ringer's (Ringers, Lactated) Confirm Administered Dose 1,000 mls @ as directed .ROUTE .STK-MED ONE Stop: 11/23/19 10:39 Cefazolin Sodium/Dextrose 1 gm (/ Premix) 50 mls @ 100 mls/hr IV Q8H [facility] Stop: 11/24/19 09:59 Last Admin: 11/24/19 08:41 Dose: 100 mls/hr Documented by: Insulin Human Lispro (Humalog) 0 unit SUBCUT QIDACANDBED [facility]; Protocol Last Admin: 11/24/19 07:35 Dose: Not Given Documented by: Iodine (Iodine 2% Mild Tincture) Confirm Administered Dose 0 ml .ROUTE .STK-MED ONE Stop: 11/23/19 12:32 Iodine (Iodine 2% Mild Tincture) Confirm Administered Dose 30 ml .ROUTE .STK-MED ONE Stop: 11/23/19 09:14 Last Admin: 11/23/19 11:45 Dose: 18 ml Documented by: Ketorolac Tromethamine (Toradol) 15 mg IVPUSH Q6H PRN PRN Reason: Pain Ketorolac Tromethamine (Toradol) 15 mg IVPUSH Q6H PRN PRN Reason: Pain Lidocaine/Sodium Bicarbonate (Buffered Lidocaine 1% In Ns 8.4%) 0.25 ml IDERM ONETIME PRN PRN Reason: Prior to IV Start Stop: 11/23/19 18:00 Last Admin: 11/23/19 09:15 Dose: 0.25 ml Documented by: Magnesium Hydroxide (Milk Of Magnesia) 30 ml PO BID PRN PRN Reason: Constipation Midazolam HCl (Versed 1 Mg/Ml) Confirm Administered Dose 2 mg .ROUTE .STK-MED ONE Stop: 11/23/19 09:24 Miscellaneous Information (Remove Patch) 1 ea TRDERM DAILY@1600 [facility] Last Admin: 11/23/19 16:39 Dose: Not Given Documented by: Morphine Sulfate (Morphine) 2 mg IVPUSH Q2H PRN PRN Reason: Breakthrough Pain Multivitamins (Thera) 1 each PO DAILY [facility] Last Admin: 11/24/19 08:39 Dose: 1 each Documented by: Naloxone HCl (Narcan) 0.1 mg IVPUSH Q5M PRN PRN Reason: Oversedation Nicotine (Habitrol) 14 mg TRDERM DAILY@1600 [facility] Last Admin: 11/23/19 16:27 Dose: Not Given Documented by: Ondansetron HCl (Zofran) 4 mg IVPUSH Q6H PRN PRN Reason: Nausea/Vomiting Ondansetron HCl (Zofran) Confirm Administered Dose 4 mg .ROUTE .STK-MED ONE Stop: 11/23/19 10:04 Ondansetron HCl (Zofran) Confirm Administered Dose 4 mg .ROUTE .STK-MED ONE Stop: 11/23/19 11:39 Oxycodone HCl (Oxycontin) 10 mg PO ONETIME [facility] Stop: 11/23/19 12:00 Last Admin: 11/23/19 09:04 Dose: 10 mg Documented by: Oxycodone/Acetaminophen (Percocet 325-5 Mg) 1 - 2 tab PO Q4H PRN PRN Reason: Pain Last Admin: 11/24/19 09:14 Dose: 2 tab Documented by: Pantoprazole Sodium (Protonix) 40 mg PO DAILY [facility] Last Admin: 11/24/19 08:39 Dose: 40 mg Documented by: Pregabalin (Lyrica) 50 mg PO ONETIME [facility] Stop: 11/23/19 12:00 Last Admin: 11/23/19 09:04 Dose: 50 mg Documented by: Propofol (Diprivan 20 Ml) Confirm Administered Dose 200 mg .ROUTE .STK-MED ONE Stop: 11/23/19 10:04 Rocuronium [place] (Zemuron) Confirm Administered Dose 50 mg .ROUTE .STK-MED ONE Stop: 11/23/19 10:04 Ropivacaine (Naropin 0.5%) Confirm Administered Dose 30 ml .ROUTE .STK-MED ONE Stop: 11/23/19 09:22 Senna (Senna) 8.6 mg PO BID PRN PRN Reason: Constipation Sodium Chloride (Saline Flush) 10 ml FLUSH ASDIRECTED PRN PRN Reason: Keep Vein Open Stop: 11/23/19 18:00 Tranexamic Acid (Cyklokapron) Confirm Administered Dose 0 mg .ROUTE .STK-MED ONE Stop: 11/23/19 12:32 Tranexamic Acid (Cyklokapron) Confirm Administered Dose 1,000 mg .ROUTE .STK-MED ONE Stop: 11/23/19 09:14 Last Admin: 11/23/19 11:53 Dose: 1,000 mg Documented by: Vancomycin HCl (Vancomycin) Confirm Administered Dose 0 gm .ROUTE .STK-MED ONE Stop: 11/23/19 12:32 Vancomycin HCl (Vancomycin) Confirm Administered Dose 1 gm .ROUTE .STK-MED ONE Stop: 11/23/19 09:14 Last Admin: 11/23/19 11:53 Dose: 1 gm Documented by: Venlafaxine HCl (Effexor Xr) 150 mg PO DAILY [facility] Last Admin: 11/24/19 08:38 Dose: 150 mg Documented by:
--- NOTE | 2019-11-30 09:57 | PCM.OPNOTE ---
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
--- NOTE | 2019-12-01 09:19 | OR ---
DATE OF OPERATION: 11/23/2019 SURGEON: Julien Redd MD OPERATION PERFORMED: Right reverse total shoulder arthroplasty. PREOPERATIVE DIAGNOSIS: Right shoulder glenohumeral arthrosis. POSTOPERATIVE DIAGNOSIS: Right shoulder glenohumeral arthrosis. ANESTHESIA: General endotracheal intubation with regional interscalene block. ANESTHESIA PROVIDER: Pedro Merlos CRNA. SOAP CHIPPER: Lilly Butts PA-C, and Adrianna Segura LPN. ESTIMATED BLOOD LOSS: 350 mL. COMPLICATIONS: None. CONDITION: Stable. IMPLANTS: 1. Letcher size 14 humeral stem. 2. Letcher size 28 mm concentric base plate. 3. Christiano size 36+ 2 glenosphere. 4. Christiano size 4 mm polyethylene. DESCRIPTION OF PROCEDURE: The patient was identified in the preop holding area. Proper site was marked and identified by the surgeon. The patient was taken back to the operating theater, where after adequate anesthesia, the patient's right upper extremity was sterilely prepped and draped in usual sterile fashion. OR time-out was performed. The patient received 2 g IV Ancef. He was then placed in the reverse Trendelenburg position. Standard deltopectoral incision was made. This was taken down to the cephalic vein and the deltoid was then retracted laterally. Clavipectoral fascia was incised and the conjoined tendon was retracted medially. Biceps tendon was identified and a tenodesis of the biceps tendon was done near the level of the pectoralis. Opening of the bicipital groove was done all the way back to the level of the glenoid. The biceps was then resected. Peel down of the subscapularis tendon was then done and the humeral head was dislocated. At this time, neck cut was completed and found to be adequate and attention was turned to the glenoid. Anterior posterior retractors were placed. A capsulectomy as well as circumferential removal of the remaining labrum and biceps was then done at this time. Guide pin was placed in a center-center position with roughly 10 degrees inferior tilt and the peripheral reamer was then utilized. The glenoid base plate was then screwed into place and inferior and superior locking screws were placed. A 36+ 2 glenosphere was then impacted into place. Attention was turned to the humerus. Starting with a 10 broach, I was able to broach up to 14, which was found to be rotationally and vertically stable. Trial implants were then placed. The patient had full range of motion with the shoulder. C-arm fluoroscopy was utilized showing well-seated implants with no signs of malposition. The trial implants were then removed and the construct for 135 degree size 14 stem with +4 poly was done on the back table. This was then impacted into the humerus en bloc. It was then relocated. C-arm fluoroscopy was utilized again showing everything to be in alignment. 1 L dilute Betadine solution as well as 3 L of pulse lavage irrigation with Ancef was then irrigated through the shoulder. Topical tranexamic acid and vancomycin powder were applied. A 2-0 Vicryl was used subcutaneously and Prineo was used for the skin. The patient had a sterile soft dressing applied and sent to PACU in stable condition. MMGEOFF /[id number]
== END 2019-11-24 11:07 | disposition home or self-care (01) | DRG 322 ==
LOC: JD.MS 08:48
PROVIDERS: ADMIT Orthopaedic Surgery; ATTEND Orthopaedic Surgery
PROC: 0RRJ00Z Replacement of Right Shoulder Joint with Reverse Ball and Socket Synthetic Substitute, Open Approach (ICD-10-PCS; principal; 2019-11-23)
DX: M19.011 Primary osteoarthritis, right shoulder (principal); F41.9 Anxiety disorder, unspecified; K21.9 Gastro-esophageal reflux disease without esophagitis; F17.220 Nicotine dependence, chewing tobacco, uncomplicated; I10 Essential (primary) hypertension; E11.9 Type 2 diabetes mellitus without complications; E66.9 Obesity, unspecified; K64.9 Unspecified hemorrhoids; K44.9 Diaphragmatic hernia without obstruction or gangrene; M50.30 Other cervical disc degeneration, unspecified cervical region; G89.29 Other chronic pain; M54.9 Dorsalgia, unspecified; Z79.82 Long term (current) use of aspirin; Z79.899 Other long term (current) drug therapy; Z79.4 Long term (current) use of insulin; Z68.41 Body mass index [BMI] 40.0-44.9, adult
CPT/HCPCS: 01638; 36415; 64415; 73020-26-RT; 73020-RT; 76000; 76000-26; 80053; 82962; 85027; 87641; 97110-GP; 97161-GP; 97165-GO; 97535-GO; 99222; 99231; A9270-GY; C1713; C1776; J0171; J0690; J2001; J2250; J2405; J2704; J2795; J3010; J3370; J3490; J7120; U0002

== ENCOUNTER 2022-08-26 08:26 | Day surgery (SDC) | payer OTHER ==
[~2022-08-26 08:26] MED LIST changes: -Acetaminophen 325 MG Tab PO SCH; -Bisacodyl 5 MG Tab PO PRN; -Cyclobenzaprine 10 MG Tab PO PRN; +EPINEPHrine 1 MG/ML 30 ML MDV IRR SCH; -Famotidine 20 MG Tab PO SCH; -Ketorolac 15 MG/ML SDV IVPUSH PRN; -Magnesium Hydroxide 400 MG/5 ML Susp 30 ML Cup PO PRN; -Morphine 2 MG/ML SYRINGE IVPUSH PRN; -Naloxone 0.4 MG/ML SDV IVPUSH PRN; -Ondansetron 4 MG/2 ML SDV IVPUSH PRN; -Pregabalin 25 MG Cap PO SCH; -Sennosides 8.6 MG Tab PO PRN; +Sodium Chloride 0.9% 10 ML Syringe FLUSH SCH; -ceFAZolin 2 GM in Premix Bag 1 BAG IV SCH; -oxyCODONE ER 10 MG TAB.ER PO SCH
[2022-08-26] MEDS ORDERED: Bupivacaine 0.25% 10 ML SDV ONE (09:01)
[2022-08-26] MEDS ORDERED: Ondansetron 4 MG/2 ML SDV IVPUSH PRN (09:09)
[2022-08-26] MEDS ORDERED: fentaNYL 100 MCG/2 ML SDV IVPUSH PRN (09:09)
[2022-08-26] MEDS ORDERED: HYDROmorphone 0.5 MG/0.5 ML Syringe IVPUSH PRN (09:09)
[2022-08-26] MEDS ORDERED: Propofol 200 MG/20 ML SDV ONE ×2 (09:18)
[2022-08-26] MEDS ORDERED: Midazolam 1 MG/ML 2 ML SDV ONE (09:18)
[2022-08-26] MEDS ORDERED: ceFAZolin 2 GM Vial ONE (09:19)
[2022-08-26] MEDS ORDERED: Lidocaine 1% 2 ML ONE (09:19)
[2022-08-26] MEDS ORDERED: fentaNYL 100 MCG/2 ML SDV ONE (09:19)
[2022-08-26] MEDS ORDERED: Dexamethasone 4 MG/ML 5 ML MDV ONE (09:19)
[2022-08-26] MEDS ORDERED: Ondansetron 4 MG/2 ML SDV ONE (09:20)
[2022-08-26] MEDS ORDERED: Ketorolac 30 MG/ML SDV ONE (09:20)
[2022-08-26] MEDS ORDERED: ePHEDrine 50 MG/ML SDV ONE (10:51)
[2022-08-26] MEDS ORDERED: Acetaminophen/HYDROcodone 325-5 MG Tab PO SCH (11:37)
[2022-08-26 12:26] VITALS: PULSE 77
[2022-08-26 12:55] VITALS: BP 136/77
== END 2022-08-26 13:08 | disposition home or self-care (01) ==
LOC: JD.SDS 08:26
PROVIDERS: ATTEND Orthopaedic Surgery
DX: S83.242A Other tear of medial meniscus, current injury, left knee, initial encounter (principal); M22.42 Chondromalacia patellae, left knee; M94.262 Chondromalacia, left knee; F41.9 Anxiety disorder, unspecified; I25.10 Atherosclerotic heart disease of native coronary artery without angina pectoris; K21.9 Gastro-esophageal reflux disease without esophagitis; I10 Essential (primary) hypertension; E66.9 Obesity, unspecified; Z79.82 Long term (current) use of aspirin; Z79.899 Other long term (current) drug therapy; Z68.39 Body mass index [BMI] 39.0-39.9, adult; Z87.19 Personal history of other diseases of the digestive system; X58.XXXA Exposure to other specified factors, initial encounter
CPT/HCPCS: 29881; J0171; J0690; J1100; J1885; J2250; J2405; J2704; J3010; J3490; J7120; 01400

== ENCOUNTER 2023-07-22 09:27 | Day surgery (SDC) | payer OTHER ==
[~2023-07-22 09:27] MED LIST changes: -EPINEPHrine 1 MG/ML 30 ML MDV IRR SCH; -Lactated Ringers 1,000 ML IV SCH; -Lidocaine 1%/Sod Bicarbonate in NS 8.4% 1 ML Syringe IDERM PRN
[2023-07-22] MEDS: Lactated Ringers 1,000 ML IV SCH (09:35)
[2023-07-22] MEDS ORDERED: Propofol 200 MG/20 ML SDV ONE ×2 (10:14→12:08)
[2023-07-22 13:34] VITALS: BP 124/78; PULSE 74
== END 2023-07-22 13:30 | disposition home or self-care (01) ==
LOC: JD.SDS 09:27
PROVIDERS: ATTEND Student in an Organized Health Care Education/Training Program
DX: K57.30 Diverticulosis of large intestine without perforation or abscess without bleeding (principal); K57.32 Diverticulitis of large intestine without perforation or abscess without bleeding; K44.9 Diaphragmatic hernia without obstruction or gangrene; I10 Essential (primary) hypertension; E11.9 Type 2 diabetes mellitus without complications; I25.10 Atherosclerotic heart disease of native coronary artery without angina pectoris; N40.0 Benign prostatic hyperplasia without lower urinary tract symptoms; M54.50 Low back pain, unspecified; E66.9 Obesity, unspecified; E04.1 Nontoxic single thyroid nodule; Z68.39 Body mass index [BMI] 39.0-39.9, adult; Z79.899 Other long term (current) drug therapy
CPT/HCPCS: 00811; J2704; J7120

== ENCOUNTER → 2025-03-26 | Day surgery (SDC) | payer OTHER ==
[~2025-03-26] MED LIST changes: +Dexamethasone 4 MG/ML 5 ML MDV ONE; +Lactated Ringers 1,000 ML ONE; +Ondansetron 4 MG/2 ML SDV IVPUSH PRN; +Ondansetron 4 MG/2 ML SDV ONE; +Phenylephrine 1% 10 MG/ML SDV ONE; +Propofol 200 MG/20 ML SDV ONE; +dexmedeTOMIDine HCl 200 MCG/2 ML SDV ONE; +fentaNYL 100 MCG/2 ML SDV IVPUSH PRN; +fentaNYL 100 MCG/2 ML SDV ONE; +fentaNYL 250 MCG/5 ML SDV ONE; +propofoL 500 MG/50 ML 0 ML ONE
[2025-03-26] MEDS: Lactated Ringers 1,000 ML IV SCH (11:45)
[2025-03-26] MEDS: EPINEPHrine 1 MG/ML SDV ONE (13:01)
[2025-03-26 15:41] VITALS: BP 133/77; PULSE 60
== END | disposition home or self-care (01) ==
LOC: JD.SDS 11:28
PROVIDERS: ATTEND Orthopaedic Surgery
DX: S83.241A Other tear of medial meniscus, current injury, right knee, initial encounter (principal); M22.41 Chondromalacia patellae, right knee; I10 Essential (primary) hypertension; E66.01 Morbid (severe) obesity due to excess calories; E11.9 Type 2 diabetes mellitus without complications; F17.200 Nicotine dependence, unspecified, uncomplicated; Z79.82 Long term (current) use of aspirin; Z68.37 Body mass index [BMI] 37.0-37.9, adult; Z79.899 Other long term (current) drug therapy
CPT/HCPCS: 29881; A9270; J0169; J0665; J0690; J1100; J2405; J2704; J3010; J7120; J2371